=== PATIENT | female | born 1995 | race African-American/Black ===

== ENCOUNTER 2018-06-08 10:25 | Emergency (ER) | payer OTHER ==
[~2018-06-08] VITALS: Ht 165.1 cm; Wt 74.8 kg
[~2018-06-08 10:25] MED LIST: CITRATE OF MAG296 ML PO; KEFLEX500 MG PO; MIRALAX255 GM PO; NAPROSYN500 MG PO; NEXPLANON68 MG SQ; UNICOMPLEX M TA1 TA1 PO
[2018-06-08 13:49] VITALS: BP 100/64
== END 2018-06-08 13:55 | disposition short-term general hospital (02) ==
LOC: ER 10:25
DX: O69.0XX0 Labor and delivery complicated by prolapse of cord, not applicable or unspecified (principal); Z3A.19 19 weeks gestation of pregnancy